=== PATIENT | female | born 1990 | race Caucasian/White ===

== ENCOUNTER 2021-05-01 18:31 | Emergency (ER) | payer OTHER ==
[~2021-05-01] VITALS: Ht 167.6 cm; Wt 59.0 kg
[2021-05-01] MEDS ORDERED: IV NS 0.9% 1,000 ML BAG IV ONE (19:00)
--- NOTE | 2021-05-01 19:05 | NUR ---
SALINE LOCK ESTABLISHED, BLOOD DRAWN AND SENT TO LAB
--- NOTE | 2021-05-01 19:16 | NUR ---
PT AAOX4. PER TRIAGE, WOKE UP IN THE KITCHEN FLOOR YESTERDAY WITH FACIAL BRUISE/HEMATOMA. PLACED IN BED 10 ON MONITOR AND PULSE OX. WILL CONTINUE TO MONITOR.
[2021-05-01 19:21] LABS: BASOPHILS # (AUTO) 0.1 K/uL (0.0-0.2); BASOPHILS % (AUTO) 0.8 % (0.0-2.0); EOSINOPHILS % (AUTO) 0.7 % (0.0-6.0); HEMATOCRIT 43 % (33-45); HEMOGLOBIN 14.7 g/dL (11.5-14.8); LYMPHOCYTES # (AUTO) 2.3 K/uL (0.8-4.8); LYMPHOCYTES % (AUTO) 29.2 % (20.0-44.0); MEAN CORPUSCULAR HGB CONC 34 g/dl (31.0-36.0); MEAN CORPUSCULAR VOLUME 99 fL (82-100); MONOCYTES # (AUTO) 0.4 K/uL (0.1-1.30); NEUTROPHILS % (AUTO) 64.3 % (43.0-81.0); PLATELET COUNT (AUTO) 322 K/uL (150-450); WHITE BLOOD COUNT (AUTO) 7.7 K/uL (4.3-11.0)
[2021-05-01 19:29] LABS: CALCIUM, SERUM 8.9 mg/dL (8.5-10.1); CARBON DIOXIDE 29 mmol/L (21-32); CHLORIDE 100 mmol/L (98-107); GLUCOSE 93 mg/dL (74-106); POTASSIUM 3.5 mmol/L (3.5-5.1); SODIUM SERUM 138 mmol/L (136-145); UREA NITROGEN, BLOOD 14 mg/dL (7-18)
[2021-05-01] MEDS ORDERED: IBUPROFEN 200 MG TABLET ONE (20:24)
[2021-05-01] MEDS ORDERED: IBUPROFEN 400 MG TABLET ONE (20:25)
[2021-05-01] MEDS ORDERED: SUMATRIPTAN SUCCINATE 25 MG TABLET PO ONE (20:30)
[2021-05-01] MEDS ORDERED: IBUPROFEN 600 MG TABLET PO ONE (20:30)
[2021-05-01] MEDS ORDERED: KETOROLAC TROMETHAMINE INJ 30 MG/ML VIAL ONE (21:04)
--- NOTE | 2021-05-01 21:24 | NUR ---
Patient discharged to home in stable condition. Written and verbal after care instructions given. Patient verbalizes understanding of instruction. Pt ambulated out of ED.VSS.
[2021-05-01] MEDS ORDERED: KETOROLAC TROMETHAMINE INJ 30 MG/ML VIAL IM ONE (21:30)
[2021-05-01 21:54] VITALS: BP 120/78
== END 2021-05-01 21:42 | disposition home or self-care (01) ==
LOC: ER 18:36
DX: S06.0X0A Concussion without loss of consciousness, initial encounter (principal); S00.83XA Contusion of other part of head, initial encounter; R55 Syncope and collapse; Z88.8 Allergy status to other drugs, medicaments and biological substances; W22.8XXA Striking against or struck by other objects, initial encounter; Y93.89 Activity, other specified; Y92.89 Other specified places as the place of occurrence of the external cause; Y99.8 Other external cause status
CPT/HCPCS: 36415; 70160; 70450; 71045; 72125; 80048; 84484; 84703; 85025; 85730; 93005; 96360; 96372; 99285; J1885; J7030; L0172

== ENCOUNTER 2022-01-22 08:49 | Emergency (ER) | payer OTHER ==
[~2022-01-22] VITALS: Ht 162.6 cm; Wt 56.7 kg
[2022-01-22] MEDS ORDERED: MORPHINE SULFATE INJ 2 MG/ML DISP.SYRIN IV ONE (09:00)
[2022-01-22] MEDS ORDERED: ONDANSETRON HCL/PF 4 MG/2 ML VIAL IVP ONE (09:00)
--- NOTE | 2022-01-22 09:00 | NUR ---
BIBS W/ C/O LOW BACK AND LOWER ABDOMINAL PAIN. PT STATES SHE WAS PREVIOUSLY SEEN AT [facility] [place] 3 DAYS AGO FOR SAME COMPLAINT W/ DX UTERINE FIBROIDS. TO ER BED 11.
--- NOTE | 2022-01-22 09:10 | NUR ---
URINE SAMPLE COLLECTED AND SENT TO LAB
[2022-01-22] MEDS ORDERED: MORPHINE SULFATE INJ 4 MG/ML DISP.SYRIN ONE (09:11)
[2022-01-22 09:23] LABS: BASOPHILS % (AUTO) 0.3 % (0.0-2.0); EOSINOPHILS % (AUTO) 0.7 % (0.0-6.0); HEMATOCRIT 43 % (33-45); HEMOGLOBIN 14.5 g/dL (11.5-14.8); LYMPHOCYTES # (AUTO) 1.9 K/uL (0.8-4.8); MEAN CORPUSCULAR HGB CONC 34 g/dl (31.0-36.0); MEAN CORPUSCULAR VOLUME 97 fL (82-100); NEUTROPHILS # (AUTO) 8.2 K/uL (1.8-8.9); PLATELET COUNT (AUTO) 316 K/uL (150-450); RED BLOOD CELL COUNT(AUTO) 4.45 MIL/uL (4.0-5.2); WHITE BLOOD COUNT (AUTO) 11.2 K/uL (4.3-11.0)
[2022-01-22 09:28] LABS: BILIRUBIN,URINE NEGATIVE (NEGATIVE); COLOR,URINE YELLOW (YELLOW); LEUKOCYTE ESTERASE ,URINE NEGATIVE (NEGATIVE); NITRITE, URINE NEGATIVE (NEGATIVE); PROTEIN,URINE 100 mg/dl (NEGATIVE); UGLUCOSE NEGATIVE (NEGATIVE); UROBILINOGEN,URINE 0.2 EU/dL (0.2)
--- NOTE | 2022-01-22 09:41 | NUR ---
ULTRASOUND AT BEDSIDE
[2022-01-22 09:52] LABS: ALBUMIN 4.1 g/dL (3.4-5.0); BILIRUBIN,DIRECT 0.1 mg/dL (0.0-0.2); BILIRUBIN,TOTAL 0.6 mg/dL (0.2-1.0); CALCIUM, SERUM 8.9 mg/dL (8.5-10.1); CREATININE 1.1 mg/dL (0.6-1.3); POTASSIUM 3.7 mmol/L (3.5-5.1); TOTAL PROTEIN, SERUM 7.8 g/dL (6.4-8.2)
[2022-01-22 09:57] LABS: BACTERIA,URINE Few /HPF (None Seen); RBC,URINE 0-2 /HPF (0-2); SQUAMOUS EPITHELIAL CELL,UR Moderate /HPF (None Seen); WBC,URINE 0-2 /HPF (0-3)
[2022-01-22] MEDS ORDERED: HYDROMORPHONE 1 MG/1 ML DISP.SYRIN ONE (10:29)
[2022-01-22] MEDS ORDERED: HYDROMORPHONE 1 MG/1 ML DISP.SYRIN IV ONE (10:30)
--- NOTE | 2022-01-22 10:50 | NUR ---
PT TAKEN TO CT VIA PATEL
[2022-01-22] MEDS ORDERED: ONDANSETRON HCL/PF 4 MG/2 ML VIAL ONE (11:20)
[2022-01-22] MEDS ORDERED: diphenhydrAMINE HCL 50 MG/ML VIAL ONE (11:28)
[2022-01-22] MEDS ORDERED: ONDANSETRON HCL/PF - ER 4 MG/2 ML VIAL IV ONE (11:30)
[2022-01-22] MEDS ORDERED: diphenhydrAMINE HCL 50 MG/ML VIAL IV ONE (11:30)
--- NOTE | 2022-01-22 12:20 | NUR ---
PAGED DR. BATES
[2022-01-22] MEDS ORDERED: KETOROLAC TROMETHAMINE INJ 30 MG/ML VIAL ONE (12:22)
[2022-01-22] MEDS ORDERED: KETOROLAC TROMETHAMINE INJ 30 MG/ML VIAL IV ONE (12:30)
--- NOTE | 2022-01-22 13:00 | NUR ---
FOLLOWED UP WITH DR. BATES BUT STILL HAD NO ANSWER. AWAITING A CALL BACK
[2022-01-22] MEDS ORDERED: HYDR-3972 PO (13:41)
[2022-01-22] MEDS ORDERED: IBUP-1955 PO (13:41)
--- NOTE | 2022-01-22 13:54 | NUR ---
IV removed. Catheter intact and site benign. Pressure and 4x4 applied to site. No bleeding noted.Patient discharged to home in stable condition. Written and verbal after care instructions given. Patient verbalizes understanding of instruction.
[2022-01-22 13:55] VITALS: BP 115/67
== END 2022-01-22 13:55 | disposition home or self-care (01) ==
LOC: ER 09:05
DX: N83.202 Unspecified ovarian cyst, left side (principal); R10.31 Right lower quadrant pain; G43.909 Migraine, unspecified, not intractable, without status migrainosus; Z90.89 Acquired absence of other organs; Z98.890 Other specified postprocedural states
CPT/HCPCS: 99285; 74176; 96374; 96375; 76856; 85025; 80048; 83690; 80076; 84703; 81001; 36415; J1200; J2270; J1885; J2405 ×2; J1170

== ENCOUNTER 2022-07-16 09:57 | Emergency (ER) | payer SELFPAY ==
[~2022-07-16] VITALS: Ht 162.6 cm; Wt 54.4 kg
[~2022-07-16 09:57] MED LIST: HYDR-3972 PO; IBUP-1955 PO
--- NOTE | 2022-07-16 10:10 | NUR ---
lower abdominal pain x 3 weeks, vomiting all night, + nausea
[2022-07-16] MEDS ORDERED: IV NS 0.9% 500 ML BAG IV ONE (10:30)
[2022-07-16] MEDS ORDERED: ONDANSETRON HCL/PF 4 MG/2 ML VIAL IVP ONE (10:30)
[2022-07-16] MEDS ORDERED: HYDROMORPHONE INJ 2 MG/ML DISP.SYRIN IV ONE (10:30)
[2022-07-16] MEDS ORDERED: HYDROMORPHONE 1 MG/1 ML DISP.SYRIN ONE ×2 (10:43→11:57)
[2022-07-16] MEDS ORDERED: ONDANSETRON HCL/PF 4 MG/2 ML VIAL ONE ×2 (10:43→11:57)
[2022-07-16 10:45] LABS: BASOPHILS % (AUTO) 0.5 % (0.0-2.0); EOSINOPHILS % (AUTO) 1.5 % (0.0-6.0); HEMATOCRIT 43 % (33-45); HEMOGLOBIN 14.4 g/dL (11.5-14.8); LYMPHOCYTES # (AUTO) 1.8 K/uL (0.8-4.8); LYMPHOCYTES % (AUTO) 23.5 % (20.0-44.0); MEAN CORPUSCULAR HGB CONC 33 g/dl (31.0-36.0); MEAN CORPUSCULAR VOLUME 99 fL (82-100); MONOCYTES # (AUTO) 0.4 K/uL (0.1-1.30); MONOCYTES % (AUTO) 5.9 % (2.0-12.0); NEUTROPHILS # (AUTO) 5.2 K/uL (1.8-8.9); NEUTROPHILS % (AUTO) 68.6 % (43.0-81.0); PLATELET COUNT (AUTO) 314 K/uL (150-450); RED BLOOD CELL COUNT(AUTO) 4.35 MIL/uL (4.0-5.2); WHITE BLOOD COUNT (AUTO) 7.6 K/uL (4.3-11.0)
[2022-07-16 10:46] LABS: BILIRUBIN,URINE NEGATIVE (NEGATIVE); COLOR,URINE YELLOW (YELLOW); LEUKOCYTE ESTERASE ,URINE NEGATIVE (NEGATIVE); NITRITE, URINE NEGATIVE (NEGATIVE); PROTEIN,URINE NEGATIVE (NEGATIVE); UGLUCOSE NEGATIVE (NEGATIVE); UROBILINOGEN,URINE 0.2 EU/dL (0.2)
--- NOTE | 2022-07-16 10:55 | NUR ---
blood and urine sample obtained sent to lab
--- NOTE | 2022-07-16 10:55 | NUR ---
etablished iv line 20 g right ac infusing well
[2022-07-16 11:01] LABS: BACTERIA,URINE Moderate /HPF (None Seen); RBC,URINE 0-2 /HPF (0-2); SQUAMOUS EPITHELIAL CELL,UR Moderate /HPF (None Seen); WBC,URINE 0-2 /HPF (0-3)
[2022-07-16 11:04] LABS: CALCIUM, SERUM 9.3 mg/dL (8.5-10.1); CREATININE 0.8 mg/dL (0.6-1.3); POTASSIUM 3.6 mmol/L (3.5-5.1)
[2022-07-16 11:06] LABS: ALBUMIN 4.1 g/dL (3.4-5.0); BILIRUBIN,DIRECT 0.2 mg/dL (0.0-0.2); BILIRUBIN,TOTAL 1.1 mg/dL (0.2-1.0); TOTAL PROTEIN, SERUM 7.4 g/dL (6.4-8.2)
[2022-07-16] MEDS ORDERED: ONDANSETRON HCL/PF - ER 4 MG/2 ML VIAL IV ONE (12:00)
[2022-07-16] MEDS ORDERED: HYDROMORPHONE 1 MG/1 ML DISP.SYRIN IV ONE (12:00)
[2022-07-16] MEDS ORDERED: HYDR-3980 PO (12:04)
[2022-07-16] MEDS ORDERED: ONDA4TAB5 PO (12:04)
--- NOTE | 2022-07-16 12:31 | NUR ---
IV removed. Catheter intact and site benign. Pressure and 4x4 applied to site. No bleeding noted.
--- NOTE | 2022-07-16 12:52 | NUR ---
Patient discharged to home in stable condition. Written and verbal after care instructions given. Patient verbalizes understanding of instruction.
[2022-07-16 13:39] VITALS: BP 119/85
== END 2022-07-16 12:30 | disposition home or self-care (01) ==
LOC: ER 09:57
DX: N83.292 Other ovarian cyst, left side (principal); G43.909 Migraine, unspecified, not intractable, without status migrainosus; Z90.89 Acquired absence of other organs; Z88.8 Allergy status to other drugs, medicaments and biological substances; Z79.899 Other long term (current) drug therapy
CPT/HCPCS: 99285; 96374; 76856; 96375; 96376; 85025; 80048; 87086; 83690; 80076; 84703; 81001; 36415; J2405 ×2; J1170 ×2

== ENCOUNTER 2022-09-16 01:14 | Emergency (ER) | payer MEDICAID ==
[~2022-09-16] VITALS: Ht 162.6 cm; Wt 52.2 kg
[~2022-09-16 01:14] MED LIST changes: +HYDR-3980 PO; +ONDA4TAB5 PO
--- NOTE | 2022-09-16 02:20 | NUR ---
SECURED IV ACCESS ON L FA#20. FLUSHING WELL.
--- NOTE | 2022-09-16 02:28 | NUR ---
PATIENT TO RADIOLOGY FOR CT.
[2022-09-16 02:42] LABS: BASOPHILS % (AUTO) 0.5 % (0.0-2.0); EOSINOPHILS % (AUTO) 2.5 % (0.0-6.0); HEMATOCRIT 41 % (33-45); HEMOGLOBIN 13.7 g/dL (11.5-14.8); LYMPHOCYTES % (AUTO) 56.7 % (20.0-44.0); MEAN CORPUSCULAR HGB CONC 34 g/dl (31.0-36.0); MEAN CORPUSCULAR VOLUME 99 fL (82-100); MONOCYTES # (AUTO) 0.3 K/uL (0.1-1.30); MONOCYTES % (AUTO) 5.7 % (2.0-12.0); NEUTROPHILS # (AUTO) 1.8 K/uL (1.8-8.9); NEUTROPHILS % (AUTO) 34.6 % (43.0-81.0); PLATELET COUNT (AUTO) 335 K/uL (150-450); RED BLOOD CELL COUNT(AUTO) 4.08 MIL/uL (4.0-5.2); WHITE BLOOD COUNT (AUTO) 5.3 K/uL (4.3-11.0)
[2022-09-16] MEDS ORDERED: KETOROLAC TROMETHAMINE 15 MG/ML VIAL ONE (02:56)
[2022-09-16 02:58] LABS: CALCIUM, SERUM 8.7 mg/dL (8.5-10.1); CREATININE 0.7 mg/dL (0.6-1.3); POTASSIUM 3.6 mmol/L (3.5-5.1)
[2022-09-16] MEDS ORDERED: KETOROLAC TROMETHAMINE INJ 30 MG/ML VIAL IV ONE (03:00)
[2022-09-16 03:05] LABS: ALBUMIN 3.8 g/dL (3.4-5.0); BILIRUBIN,DIRECT 0.1 mg/dL (0.0-0.2); BILIRUBIN,TOTAL 0.2 mg/dL (0.2-1.0)
--- NOTE | 2022-09-16 03:45 | NUR ---
PATIENT WANTS TO GO HOME, EXPLAINED TO HER THAT WE STILL NEED TO HAVE THE RESULT OF CT SCAN. PATIENT NOT HAPPY AND WANTS TO LEAVE. MADE AWARE
--- NOTE | 2022-09-16 04:15 | NUR ---
IV MELISSA REMOVED.
--- NOTE | 2022-09-16 04:20 | NUR ---
Note [email or web address] in EDM - 09/16/22 at 0420 by DARRON Patient does not wish to proceed with medical care recommended by ( ). Patient given information related to possible complications, up to and including , which could occur as a result of leaving the hospital at this time. Patient verbalizes understanding of risks involved due to leaving against medical advice. Patient has signed AMA form.
--- NOTE | 2022-09-16 04:20 | NUR ---
Patient does not wish to proceed with medical care recommended by Dr. GRACE. Patient given information related to possible complications, up to and including , which could occur as a result of leaving the hospital at this time. Patient verbalizes understanding of risks involved due to leaving against medical advice. Patient has signed AMA form.
[2022-09-16 05:17] VITALS: BP 126/65
== END 2022-09-16 04:20 | disposition left against medical advice (07) ==
LOC: ER 01:24
DX: R10.12 Left upper quadrant pain (principal); Z90.49 Acquired absence of other specified parts of digestive tract; Z79.899 Other long term (current) drug therapy; Z88.1 Allergy status to other antibiotic agents
CPT/HCPCS: 99285; 74176; 96374; 85025; 80048; 83690; 80076; 36415; J1885

== ENCOUNTER 2023-10-13 13:44 | Emergency (ER) | payer MEDICAID ==
[~2023-10-13] VITALS: Ht 162.6 cm; Wt 49.9 kg
[2023-10-13] MEDS ORDERED: ONDANSETRON HCL/PF 4 MG/2 ML VIAL ONE (14:32)
[2023-10-13] MEDS ORDERED: KETOROLAC TROMETHAMINE 15 MG/ML VIAL ONE (14:32)
[2023-10-13] MEDS ORDERED: diphenhydrAMINE HCL 50 MG/ML VIAL ONE (14:32)
[2023-10-13] MEDS ORDERED: ACETAMINOPHEN ES 500 MG TABLET ONE (14:33)
[2023-10-13] MEDS: diphenhydrAMINE HCL 50 MG/ML VIAL IV ONE (15:00)
[2023-10-13] MEDS: IV NS 0.9% 1,000 ML BAG IV ONE (15:00)
[2023-10-13] MEDS: ACETAMINOPHEN ES 500 MG TABLET PO ONE (15:01)
[2023-10-13] MEDS: KETOROLAC TROMETHAMINE 15 MG/ML VIAL IV ONE (15:01)
[2023-10-13] MEDS: ONDANSETRON HCL/PF 4 MG/2 ML VIAL IVP ONE (15:01)
[2023-10-13 15:44] LABS: PREGNANCY TEST URINE QUAL NEGATIVE (NEGATIVE)
[2023-10-13] MEDS ORDERED: SUMATRIPTAN SUCCINATE 6 MG/0.5 ML VIAL SQ ONE (18:05)
[2023-10-13] MEDS ORDERED: Magnesium 1GM/D5W 100ML PREMIX 100 ML IV ONE (18:06)
[2023-10-13] MEDS: Magnesium 1GM/D5W 100ML PREMIX 100 ML IV SCH (18:16)
[2023-10-13] MEDS: SUMATRIPTAN SUCCINATE 6 MG/0.5 ML VIAL SQ ONE (18:17)
[2023-10-13] MEDS ORDERED: ONDA4TAB11 PO (19:07)
[2023-10-13] MEDS ORDERED: SUMA100T16 PO (19:07)
[2023-10-13 19:25] VITALS: BP 131/91; TEMP 98.2; O2SAT 99
== END 2023-10-13 19:25 | disposition home or self-care (01) ==
LOC: ER 13:57
DX: G43.909 Migraine, unspecified, not intractable, without status migrainosus (principal); R10.2 Pelvic and perineal pain; Z79.899 Other long term (current) drug therapy; Z88.1 Allergy status to other antibiotic agents
CPT/HCPCS: 99284; 96365; 96375; 96361; 84703; 96372; J1200; J3030; J2405; J7030 ×2; J3475; J1885

== ENCOUNTER 2023-11-09 17:52 | Emergency (ER) | payer MEDICAID ==
[~2023-11-09] VITALS: Ht 162.6 cm; Wt 52.2 kg
[~2023-11-09 17:52] MED LIST changes: +ONDA4TAB11 PO; +SUMA100T16 PO
[2023-11-09] MEDS ORDERED: AMOX-430 PO (18:58)
[2023-11-09] MEDS ORDERED: ACETAMINOPHEN ES 500 MG TABLET ONE (19:09)
[2023-11-09] MEDS: ACETAMINOPHEN ES 500 MG TABLET PO ONE (19:11)
[2023-11-09 20:42] VITALS: BP 115/87; TEMP 98.8; O2SAT 99
== END 2023-11-09 20:42 | disposition home or self-care (01) ==
LOC: ER 17:56
DX: H66.91 Otitis media, unspecified, right ear (principal); G43.909 Migraine, unspecified, not intractable, without status migrainosus; Z79.899 Other long term (current) drug therapy; Z88.1 Allergy status to other antibiotic agents